=== PATIENT | female | born 1970 | race Two or more races ===

== ENCOUNTER 2020-02-23 12:14 | Inpatient (IN) | payer OTHER ==
[~2020-02-23] VITALS: Ht 162.6 cm; Wt 88.0 kg
[2020-03-02] MEDS ORDERED: VITAMIN C100 MG PO (14:18)
[2020-03-02] MEDS ORDERED: MAGNESIUM PO (14:18)
[2020-03-02] MEDS ORDERED: VITAMIN D PO (14:19)
[2020-03-02] MEDS ORDERED: VITAMIN D310 MCG/1 M PO (14:20)
[2020-03-09] MEDS ORDERED: MAGNESIUM400 M1 PO (10:38)
[2020-03-12] MEDS ORDERED: HYOSCYAMINE0.125 M1 SL (10:52)
[2020-03-12] MEDS ORDERED: OXYC1TAB9 PO (10:52)
[2020-03-12] MEDS ORDERED: INTESTINEX680 M1 PO (10:53)
[2020-04-04] MEDS ORDERED: INTEGRA CAPSUL1 EACH PO (10:52)
== END 2020-03-12 13:23 | disposition home or self-care (01) | DRG 331 ==
LOC: EDSTATUS 03-02 12:15 → ADM 03-02 12:15 → SURH 03-09 07:03 → O/R 03-09 07:03 → SURH 03-09 09:00
PROVIDERS: ADMIT Surgery; ATTEND Surgery
PROC: 0DBN4ZZ Excision of Sigmoid Colon, Percutaneous Endoscopic Approach (ICD-10-PCS; 2020-03-09)
PROC: 07BC4ZX Excision of Pelvis Lymphatic, Percutaneous Endoscopic Approach, Diagnostic (ICD-10-PCS; 2020-03-09)
PROC: 0D1N4ZP Bypass Sigmoid Colon to Rectum, Percutaneous Endoscopic Approach (ICD-10-PCS; 2020-03-09)
PROC: 0DJD8ZZ Inspection of Lower Intestinal Tract, Via Natural or Artificial Opening Endoscopic (ICD-10-PCS; 2020-03-09)
PROC: 0DBP4ZZ Excision of Rectum, Percutaneous Endoscopic Approach (ICD-10-PCS; principal; 2020-03-09 09:00)
DX: C18.7 Malignant neoplasm of sigmoid colon (principal); J45.20 Mild intermittent asthma, uncomplicated; D50.0 Iron deficiency anemia secondary to blood loss (chronic)

== ENCOUNTER 2020-04-06 09:06 | Day surgery (SDC) | payer OTHER ==
[~2020-04-06 09:06] MED LIST: HYOSCYAMINE0.125 M1 SL; INTEGRA CAPSUL1 EACH PO; INTESTINEX680 M1 PO; MAGNESIUM PO; MAGNESIUM400 M1 PO; OXYC1TAB9 PO; VITAMIN C100 MG PO; VITAMIN D PO; VITAMIN D310 MCG/1 M PO
[2020-04-06] MEDS ORDERED: ULTRACET PO (12:49)
== END 2020-04-06 14:40 | disposition home or self-care (01) ==
LOC: CIR.AMB 09:06
PROVIDERS: ATTEND Surgery
DX: C18.7 Malignant neoplasm of sigmoid colon (principal)
CPT/HCPCS: 36561; C1751